=== PATIENT | male | born 1950 | race Caucasian/White ===

== ENCOUNTER 2021-12-07 17:18 | Inpatient (IN) | payer OTHER ==
[~2021-12-07] VITALS: Ht 167.6 cm; Wt 84.0 kg
[~2021-12-07 17:18] MED LIST: ACET325 PO; AMAN100 PO; AMLO10 PO; ASPI81CH PO; ATOR20 PO; CHOL10002 PO; DUTA.5; ERGO400 PO; ERGO50000 PO; EZET10; FISH OIL 1,0001 EAC1 PO; GEMF600; HYDACE5 PO; HYDACE7.5L; INSUASPI; INSUASPI SC; INSULANI; INSULANPEN SC; LANS15EC; LEVEMIR100 UNIT/1; LIDO700A20 TOP; LISI20 PO; LOSA50 PO; META400 PO; METF500 PO; METO50ER PO; NAPR550 PO; NITR.4SL SL; NORT75 PO; Novolog Fl100 UNIT/1 SC; OMACOR; TAMS.4ER PO; TRAM50 PO; [UNRECOGNIZED DRUG - REMARK]; [UNRECOGNIZED DRUG - REMARK]
[2021-12-07 17:47] LABS: BASOPHILS ABSOLUTE AUTO 0.06 K/mm3 (0.00-0.23); BASOPHILS PERCENT AUTO 1 % (0-2); EOSINOPHILS ABSOLUTE AUTO 0.36 K/mm3 (0.00-0.68); EOSINOPHILS PERCENT AUTO 4 % (0-6); Hematocrit 51.3 % (37.0-53.0); Hemoglobin 16.7 g/dL (13.5-17.5); IMMATURE GRAN ABSOLUTE AUTO 0.03 K/mm3 (0.00-0.10); IMMATURE GRAN PERCENT AUTO 0 % (0-1); LYMPHOCYTES ABSOLUTE AUTO 0.99 K/mm3 (0.84-5.20); LYMPHOCYTES PERCENT AUTO 11 % (21-46); MONOCYTES ABSOLUTE AUTO 0.53 K/mm3 (0.16-1.47); MONOCYTES PERCENT AUTO 6 % (4-13); Mean Corpuscular HGB 30.5 pg (26.0-34.0); Mean Corpuscular HGB Conc 32.6 g/dL (31.5-36.5); Mean Corpuscular Volume 94 fL (80-100); Mean Platelet Volume 11.1 fL (9.1-12.4); NEUTROPHILS ABSOLUTE AUTO 6.71 K/mm3 (1.96-9.15); NEUTROPHILS PERCENT AUTO 77 % (41-73); Platelet Count 223 K/mm3 (150-400); RDW Coefficient Variation 14.3 % (11.7-14.2); RDW Standard Deviation 49.4 fL (35.1-46.3); Red Blood Cell Count 5.48 M/mm3 (4.30-5.90); White Blood Cell Count 8.68 K/mm3 (4.00-11.30)
[2021-12-07] MEDS ORDERED: JARDIANCE25 MG PO (17:49)
[2021-12-07] MEDS ORDERED: CHLO25B PO (17:50)
[2021-12-07 17:58] LABS: Albumin, Blood 3.5 g/dL (3.4-5.0); Albumin/Globulin Ratio 1.2 (0.8-1.8); Bilirubin, Total 0.6 mg/dL (0.1-1.0); Bun/Creatinine Ratio 20.7 (12.0-20.0); Calcium, Blood 9.1 mg/dL (8.5-10.1); Creatinine, Blood 0.92 mg/dL (0.60-1.20); Globulin, Blood 2.9 g/dL (2.2-4.0); Potassium, Blood 4.3 mmol/L (3.5-5.5); Total Protein, Blood 6.4 g/dL (6.4-8.2)
[2021-12-07 23:21] LABS: Magnesium, Blood 1.6 mg/dL (1.6-2.4); Thyroid Stimulating Hormone 1.85 uIU/mL (0.360-4.800)
[2021-12-08 05:03] LABS: BASOPHILS ABSOLUTE AUTO 0.07 K/mm3 (0.00-0.23); BASOPHILS PERCENT AUTO 1 % (0-2); EOSINOPHILS ABSOLUTE AUTO 0.61 K/mm3 (0.00-0.68); EOSINOPHILS PERCENT AUTO 6 % (0-6); Hematocrit 53.7 % (37.0-53.0); Hemoglobin 17.7 g/dL (13.5-17.5); IMMATURE GRAN ABSOLUTE AUTO 0.03 K/mm3 (0.00-0.10); IMMATURE GRAN PERCENT AUTO 0 % (0-1); LYMPHOCYTES PERCENT AUTO 12 % (21-46); MONOCYTES ABSOLUTE AUTO 0.75 K/mm3 (0.16-1.47); MONOCYTES PERCENT AUTO 7 % (4-13); Mean Corpuscular HGB 30.5 pg (26.0-34.0); Mean Corpuscular Volume 92 fL (80-100); Mean Platelet Volume 11.8 fL (9.1-12.4); NEUTROPHILS PERCENT AUTO 75 % (41-73); Platelet Count 240 K/mm3 (150-400); RDW Coefficient Variation 14.4 % (11.7-14.2); RDW Standard Deviation 49.2 fL (35.1-46.3); Red Blood Cell Count 5.81 M/mm3 (4.30-5.90); White Blood Cell Count 11.06 K/mm3 (4.00-11.30)
--- NOTE | 2021-12-08 05:11 | NUR ---
PT ADMITTED AT 0130 FROM ED- [facility] AND WENT BY EMS FOR MILD CHEST PAIN/SOB X 1 WEEK- PT TACHY ON TELE- PT UP AB ROMI TO BR TO URINATE OFTEN T/O SHIFT- PT EDUCATED OF STRICT I&O
[2021-12-08 05:33] LABS: Albumin, Blood 3.4 g/dL (3.4-5.0); Albumin/Globulin Ratio 1.1 (0.8-1.8); Bilirubin, Total 1.2 mg/dL (0.1-1.0); Calcium, Blood 8.9 mg/dL (8.5-10.1); Creatinine, Blood 0.79 mg/dL (0.60-1.20); Globulin, Blood 3.2 g/dL (2.2-4.0); Potassium, Blood 3.5 mmol/L (3.5-5.5); Total Protein, Blood 6.6 g/dL (6.4-8.2)
--- NOTE | 2021-12-08 06:30 | NUR ---
CALL FROM TELE - PT HAD 4 SECOND RUN OF VTACH- PT LAYING IN BED WITH EYES CLOSED, NO S/S DISTRESS/PAIN
--- NOTE | 2021-12-08 17:58 | NUR ---
PT PLEASANT TODAY. HAS BEEN WATCHING TV MOST OF DAY. DENIES CHEST PAIN, ADMITS TO SOB WITH EXERTION. WE CONTINUE TO DIURESE TODAY. IN TO VISIT MUCH OF DAY. DR LACY STATES IS A POSSIBE ANGIOGRAM TOMORROW, HAS NOT SPOKEN TO CARDIO YET. WILL DO SO TOMORROW IN AM. DID MAKE PT NPO FOR POSSIBLE ANGIO TOMORROW. PT UNDERSTANDING. PT MAINTAINING NSR PER TELE. NO OTHER CONCERNS NOTED TODAY. BED IN LOW POSITION, CALL LITE IN REACH, CALLS APROP
--- NOTE | 2021-12-09 04:18 | NUR ---
SUMMARY: PATIENT AOX4. VSS. AMBULATES IN ROOM INDEPENDENTLY. NO ACUTE EVENTS OVERNIGHT. PATIENT HAS INCREASED SOB WITH EXERTION. NO EPISODES OF CHEST PAIN OVER NIGHT. PATIENT HAS BEEN NPO SINCE MIDNIGHT. AWAITING CARDIO CONSULTATION THIS MORNING AND POSSIBLE ANGIOGRAM.
[2021-12-09 05:41] LABS: Calcium, Blood 9.4 mg/dL (8.5-10.1); Creatinine, Blood 0.94 mg/dL (0.60-1.20); Magnesium, Blood 2.1 mg/dL (1.6-2.4); Potassium, Blood 3.5 mmol/L (3.5-5.5)
--- NOTE | 2021-12-09 07:57 | NUR ---
CALLED DR LACY. OKAY EAT THIS DAY. URBAN RENEWAL MANAGER NOT IN TO SEE PT THIS AM. HOLD LOVENOX.
--- NOTE | 2021-12-09 10:22 | NUR ---
SPOKE TO DR LACY RE INCREASED H/R THIS AMN. HE INCREASED METOPROLOL
--- NOTE | 2021-12-09 10:57 | NUR ---
PT REPORTS LAST BM YEST MEDIUM.
--- NOTE | 2021-12-09 17:28 | NUR ---
PT PENDING TO GO TO ANGIOGRAM TOMORROW AM. PT TO BE NPO MIDNITE EXCEPT MEDS. NEW MEDS STARTED TODAY BY DR IVY. PT CARLA WELL, ALTHOUGH IS SOME LOW. CONTINUES TO BE ASYMPTOMATIC. AND I BOTH DISCUSSED IF LIGHTHEADED, DIZZY, FAINTNESS SYMPTOMS. SAFETY PRECAUTIONS DISCUSSED. PT VERBALIZES UNDERSTANDING. DENIES S/S AT THIS TIME. PT STATES AWARE OF ANGIO TOMORROW. NO NEW CONCERNS NOTED. BED IN LOW POSITION, CALL LITE IN REACH, CALLS APROP
--- NOTE | 2021-12-09 17:39 | NUR ---
PER TELE RUNNING 105-115 H/RATE. NSR WITH OCC PVC'S LAST VS 98/, PT STATES ASYMPOTOMATIC
--- NOTE | 2021-12-10 04:30 | NUR ---
SUMMARY: PATIENT DID WELL OVERNIGHT. VSS. AOX4. AMBULATED IN ROOM INDEPENDENTLY. PROVIDED PATIENT A SNACK BEFORE BED HE WAS KEPT NPO SINCE MIDNIGHT. NO COMPLAINTS OF CP AT THIS TIME. ANTICIPATING AGIOGRAM THIS AM.
[2021-12-10 05:45] LABS: Anion Gap 7 mmol/L (6-16); Blood Urea Nitrogen 38 mg/dL (8-24); Bun/Creatinine Ratio 34.2 (12.0-20.0); CO2, Blood 28 mmol/L (21-32); Calcium, Blood 8.6 mg/dL (8.5-10.1); Chloride, Blood 105 mmol/L (98-108); Cholesterol 89 mg/dL (50-200); Creatinine, Blood 1.11 mg/dL (0.60-1.20); Glomerular Filtration Rate 71 (60-); Glucose, Blood 125 mg/dL (70-99); HDL Cholesterol 30 mg/dL (>39); LDL/HDL RATIO 1.4; Low Density Lipoprotein Chol 42 mg/dL (0-110); Magnesium, Blood 2.1 mg/dL (1.6-2.4); Potassium, Blood 3.5 mmol/L (3.5-5.5); Sodium, Blood 140 mmol/L (136-145); Triglycerides 84 mg/dL (30-160); Very Low Density Lipoprot Chol 16 mg/dL (6-32)
--- NOTE | 2021-12-10 08:00 | NUR ---
PATIENT TO FIELD MARKETING DIRECTOR. WILL CALL REPORT TO ONCOMING NURSE WHEN BED AVAILABLE.
--- NOTE | 2021-12-10 08:30 | NUR ---
PCU TRANSFER SPOKE WITH CICI VIDALES ON THE PHONE IN PCU TO GIVE REPORT OF PT TRANSFER. PT WAS TAKEN FOR AN ANIGOGRAM THIS AM AND WILL RETURN TO PCU AFTER ITS COMPLETION.
--- NOTE | 2021-12-10 10:00 | NUR ---
SPOKE WITH DR. ALEMAN REGARDING LASIX AND ALDACTONE ORDERS. DUE TO LOW BP HOLD BOTH PER DR. ALEMAN.
--- NOTE | 2021-12-10 15:11 | NUR ---
SHIFT SUMMARY; ASSUMED [facility]ARE FROM [facility]. ANGIO WITH RIGHT RADIAL SITE. TR BAND IN PLACE WITH ARM BOARD. A/A/OX4, INDEPENDANT IN ROOM, SPOUSE AT BEDSIDE. UPDATED ON PENDING TRANSFER. DENIES CP OR SOB. RIGHT PULSE PALPABLE, MOVES ALL FINGERS WITHOUT DIFFICULTY, CAP REFILL <3. TR BAND RECOVERED PER ORDERS, TEGADERM IN PLACE, NO BRUISING OR SWELLING AT SITE, ARM BOARD IN PLACE AT TIME OF TRANSFER. REPORT TO [facility] FOR TRANSFER.
== END 2021-12-10 15:20 | disposition short-term general hospital (02) | DRG 286 ==
LOC: ER 17:18 → MEDS 23:31 → PCU 12-10 08:56
PROVIDERS: Family Medicine; Internal Medicine; Student in an Organized Health Care Education/Training Program; ADMIT Internal Medicine
PROC: 4A023N7 Measurement of Cardiac Sampling and Pressure, Left Heart, Percutaneous Approach (ICD-10-PCS; principal; 2021-12-10)
PROC: B2111ZZ Fluoroscopy of Multiple Coronary Arteries using Low Osmolar Contrast (ICD-10-PCS; 2021-12-10)
DX: I11.0 Hypertensive heart disease with heart failure (principal); I50.21 Acute systolic (congestive) heart failure; I24.8 Other forms of acute ischemic heart disease; E11.9 Type 2 diabetes mellitus without complications; I25.10 Atherosclerotic heart disease of native coronary artery without angina pectoris; I42.0 Dilated cardiomyopathy; I25.5 Ischemic cardiomyopathy; E78.1 Pure hyperglyceridemia; E78.00 Pure hypercholesterolemia, unspecified; I49.3 Ventricular premature depolarization; I45.81 Long QT syndrome; I45.10 Unspecified right bundle-branch block; F17.220 Nicotine dependence, chewing tobacco, uncomplicated; G47.33 Obstructive sleep apnea (adult) (pediatric); N40.0 Benign prostatic hyperplasia without lower urinary tract symptoms; F32.A Depression, unspecified; Z87.11 Personal history of peptic ulcer disease; Z90.49 Acquired absence of other specified parts of digestive tract; Z98.890 Other specified postprocedural states; Z79.4 Long term (current) use of insulin; Z79.899 Other long term (current) drug therapy
CPT/HCPCS: 36415; 71046; 76937; 80048; 80053; 80061; 82947; 83036; 83735; 83880; 84443; 84484; 85025; 93005; 93010; 93306; 93458; 96372; 96374; 96375; 96376; 99152; 99153; 99285-25; A9270; C1769; C1887; C1894; G0378; J0360; J1644; J1650; J1815; J1940; J2250; J3010; J3475; J7030; J7040; Q9967

== ENCOUNTER 2022-04-08 12:57 | Observation (INO) | payer OTHER ==
[~2022-04-08] VITALS: Ht 167.6 cm; Wt 84.1 kg
[~2022-04-08 12:57] MED LIST changes: +CHLO25B PO; +JARDIANCE25 MG PO
[2022-04-08 13:21] LABS: BASOPHILS ABSOLUTE AUTO 0.06 K/mm3 (0.00-0.23); BASOPHILS PERCENT AUTO 1 % (0-2); EOSINOPHILS ABSOLUTE AUTO 0.28 K/mm3 (0.00-0.68); EOSINOPHILS PERCENT AUTO 2 % (0-6); Hematocrit 49.6 % (37.0-53.0); Hemoglobin 16.2 g/dL (13.5-17.5); IMMATURE GRAN ABSOLUTE AUTO 0.06 K/mm3 (0.00-0.10); IMMATURE GRAN PERCENT AUTO 1 % (0-1); LYMPHOCYTES ABSOLUTE AUTO 1.01 K/mm3 (0.84-5.20); LYMPHOCYTES PERCENT AUTO 9 % (21-46); MONOCYTES ABSOLUTE AUTO 0.62 K/mm3 (0.16-1.47); MONOCYTES PERCENT AUTO 5 % (4-13); Mean Corpuscular HGB 28.9 pg (26.0-34.0); Mean Corpuscular HGB Conc 32.7 g/dL (31.5-36.5); Mean Corpuscular Volume 89 fL (80-100); Mean Platelet Volume 10.9 fL (9.1-12.4); NEUTROPHILS ABSOLUTE AUTO 9.92 K/mm3 (1.96-9.15); NEUTROPHILS PERCENT AUTO 83 % (41-73); Platelet Count 249 K/mm3 (150-400); RDW Coefficient Variation 15.5 % (11.7-14.2); RDW Standard Deviation 49.5 fL (35.1-46.3); White Blood Cell Count 11.95 K/mm3 (4.00-11.30)
[2022-04-08 13:39] LABS: Albumin, Blood 3.5 g/dL (3.4-5.0); Albumin/Globulin Ratio 1.1 (0.8-1.8); Bilirubin, Total 0.6 mg/dL (0.1-1.0); Bun/Creatinine Ratio 31.2 (12.0-20.0); Creatinine, Blood 0.93 mg/dL (0.60-1.20); Globulin, Blood 3.3 g/dL (2.2-4.0); Potassium, Blood 4.6 mmol/L (3.5-5.5); Total Protein, Blood 6.8 g/dL (6.4-8.2)
[2022-04-08] MEDS ORDERED: B-12500 MC2 PO (17:29)
[2022-04-08] MEDS ORDERED: MELATONIN5 M1 PO (17:30)
[2022-04-08] MEDS ORDERED: CLOP75 PO (17:32)
[2022-04-08] MEDS ORDERED: NAPR500 PO (17:33)
[2022-04-08] MEDS ORDERED: Aspir 8181 MG PO (17:33)
[2022-04-08] MEDS ORDERED: ENTRESTO 24 MG1 EACH PO (17:34)
[2022-04-08] MEDS ORDERED: CYCL10 PO (17:36)
[2022-04-08] MEDS ORDERED: METO25ER PO (17:39)
[2022-04-08] MEDS ORDERED: JARDIANCE25 MG PO (17:40)
--- NOTE | 2022-04-08 18:03 | NUR ---
ADMIT PT ADMITTED TO ROOM 331. ORIENTED TO ROOM. CALL LIGHT IN REACH. SNACKS AND WATER PROVIDED. PT ASKING FOR DINNER. INFORMED IT WILL BE HERE SHORTLY. PT EDUCATED ON THE USE OF THE CALL LIGHT WHEN HE NEEDS TO USE THE RESTROOM. VERBALIZES UNDERSTANDING. DENIES PAIN AT THIS TIME. DENIES OTHER NEEDS AT THIS TIME. VS REVIEWED. CALL LIHGT IN REACH.
[2022-04-08 19:35] LABS: Hematocrit 49.1 % (37.0-53.0); Hemoglobin 15.9 g/dL (13.5-17.5)
[2022-04-09 05:38] LABS: Hematocrit 48.2 % (37.0-53.0); Hemoglobin 15.5 g/dL (13.5-17.5); Mean Corpuscular HGB 28.9 pg (26.0-34.0); Mean Corpuscular HGB Conc 32.2 g/dL (31.5-36.5); Mean Corpuscular Volume 90 fL (80-100); Platelet Count 248 K/mm3 (150-400); RDW Coefficient Variation 15.7 % (11.7-14.2); Red Blood Cell Count 5.37 M/mm3 (4.30-5.90); White Blood Cell Count 11.84 K/mm3 (4.00-11.30)
[2022-04-09 06:06] LABS: Bun/Creatinine Ratio 27.4 (12.0-20.0); Calcium, Blood 8.2 mg/dL (8.5-10.1); Creatinine, Blood 0.91 mg/dL (0.60-1.20)
--- NOTE | 2022-04-09 06:37 | NUR ---
FLYING INSTRUCTOR SUMMARY: A&Ox4. PLEASANT AND COOPERATIVE WITH CARE. CALLS APPROPRIATELY AND IS ABLE TO COMMUNICATE NEEDS EFFECTIVELY. NO C / O PAIN T/O SHIFT. CHIPS AND SIPS UNTIL NOON AND WILL BE NPO AFTER NOON TODAY IN ANTICIPATION OF EGD THIS AFTERNOON. DAUGHTER IN TO VISIT FOR AWHILE LAST NIGHT. NO ACUTE CONCERNS T/O THE NIGHT. MORNING LABS DRAWN; NO CRITICAL RESULTS REPORTED. WILL REPORT TO ONCOMING RN.
--- NOTE | 2022-04-09 18:24 | NUR ---
SHIFT SUMMARY- NO BLOODY BM'S OR ANY BM'S THIS SHIFT. AAOX4. CALM APPROPRIATE.
--- NOTE | 2022-04-10 05:13 | NUR ---
ROTARY SWAGING MACHINE OPERATOR SUMMARY: A&Ox4. PLEASANT AND COOPERATIVE WITH CARE. CALLS APPROPRIATELY AND IS ABLE TO COMMUNICATE NEEDS EFFECTIVELY. EGD PLANNED FOR 04/10; WAS UNABLE TO BE COMPLETED 04/09 D/T LACK OF SURGICAL STAFF. PT DECLINES HAVING HAD BOWEL MOVEMENT TODAY; BOWEL SOUNDS TYMPANIC. 1L LR ADMINISTERED T/O SHIFT. NO ACUTE CONCERNS T/O THE NIGHT. WILL REPORT TO ONCOMING RN.
[2022-04-10 07:51] LABS: Hematocrit 51.3 % (37.0-53.0); Hemoglobin 16.1 g/dL (13.5-17.5)
--- NOTE | 2022-04-10 11:43 | NUR ---
NOTIFIED ROMI OF HR SUSTAINING IN 120'S. SAID TO GIVE METOROLOL 25MG SCHEDULED FOR 2100 NOW.
--- NOTE | 2022-04-10 18:31 | NUR ---
PT HAD A "MEDIUM, BLACK, FORMED" STOOL THIS AM. PT DENIES SEEING ANY RED/BLOOD. PT GOING TO HAVE EGD TONIGHT. NO PAIN TODAY.
--- NOTE | 2022-04-10 19:17 | NUR ---
04/10/221916 Robin Pierce History, Chart, Medications and Allergies reviewed before start of procedure. MONITOR INTACT WITH CONTINUOUS PULSE OXIMETRY AND INTERMITTENT BP. 3-LEAD EKG REVIEWED WITH PHYSICIAN PRIOR TO START OF PROCEDURE. O2 VIA N/C INTACT THROUGHOUT SEDATION/PROCEDURE. Bite Block Placed
--- NOTE | 2022-04-11 06:17 | NUR ---
MEDICAL INSURANCE CLERK SUMMARY PT A/OX4. ABLE TO MAKE NEEDS KNOWN. NO ACUTE EVENTS. COOPERATIVE WITH CARE. PT AT EDG PROCEDURE AT START OF SHIFT. RETURNED TO ROOM 1999; POST OP VITALS DONE. PT TOLERATING ORAL INTAKE WELL. PT ON TELE; SINUS W/BBB. ROOM AIR; INDEPENDENT IN THE ROOM. VITAL SIGNS STABLE. WILL CONT MONITOR. CALL LIGHT ACCESSIBLE.
--- NOTE | 2022-04-11 08:22 | NUR ---
RN INFORMED MD LLANOS OF CALL FROM TELE REGARDING THE PROLONGED QTC INTERVAL. STATED SHE WOULD REVIEW PT'S MEDS.
[2022-04-11] MEDS ORDERED: OMEP20ER PO (11:56)
--- NOTE | 2022-04-11 12:30 | NUR ---
PATIENT D/C'D TO HOME WITH FAMILY. DC INSTRUCTIONS AND EDUCATION DISCUSSED WITH PATIENT AND COPY PROVIDED. RX MEDICATIONS SENT TO [facility]. PATIENT DENIES ANY FURTHER QUESTIONS OR CONCERNS. ADVISED TO FOLLOW UP WITH PCP IN 1 WEEK.
== END 2022-04-11 12:31 | disposition home or self-care (01) ==
LOC: ER 12:57 → MEDS 12:58
PROVIDERS: Internal Medicine; Internal Medicine Gastroenterology; Student in an Organized Health Care Education/Training Program; ADMIT Internal Medicine
PROC: 0DB68ZX Excision of Stomach, Via Natural or Artificial Opening Endoscopic, Diagnostic (ICD-10-PCS; principal; 2022-04-10 16:00)
DX: K92.1 Melena (principal); K22.2 Esophageal obstruction; K44.9 Diaphragmatic hernia without obstruction or gangrene; K26.9 Duodenal ulcer, unspecified as acute or chronic, without hemorrhage or perforation; T39.315A Adverse effect of propionic acid derivatives, initial encounter; I25.2 Old myocardial infarction; Z79.4 Long term (current) use of insulin; I25.5 Ischemic cardiomyopathy; I25.10 Atherosclerotic heart disease of native coronary artery without angina pectoris; Z95.1 Presence of aortocoronary bypass graft; E78.5 Hyperlipidemia, unspecified; I97.89 Other postprocedural complications and disorders of the circulatory system, not elsewhere classified; E11.9 Type 2 diabetes mellitus without complications; Z79.84 Long term (current) use of oral hypoglycemic drugs; N40.0 Benign prostatic hyperplasia without lower urinary tract symptoms; I42.0 Dilated cardiomyopathy
CPT/HCPCS: 36415; 80048; 80053; 82272; 82947; 85014; 85018; 85025; 85027; 93005; 93010; 96374; 96376; 99285-25; A9270; C9113; G0378; J1815; J2704; J7120

== ENCOUNTER 2022-10-29 15:55 | Inpatient (IN) | payer OTHER ==
[~2022-10-29] VITALS: Ht 167.6 cm; Wt 78.1 kg
[~2022-10-29 15:55] MED LIST changes: +Aspir 8181 MG PO; +B-12500 MC2 PO; +CLOP75 PO; +CYCL10 PO; +ENTRESTO 24 MG1 EACH PO; +MELATONIN5 M1 PO; +METO25ER PO; +NAPR500 PO; +OMEP20ER PO
[2022-10-29 16:29] LABS: BASOPHILS ABSOLUTE AUTO 0.06 K/mm3 (0.00-0.23); BASOPHILS PERCENT AUTO 1 % (0-2); EOSINOPHILS ABSOLUTE AUTO 0.41 K/mm3 (0.00-0.68); EOSINOPHILS PERCENT AUTO 5 % (0-6); Hematocrit 42.4 % (37.0-53.0); Hemoglobin 13.1 g/dL (13.5-17.5); IMMATURE GRAN ABSOLUTE AUTO 0.02 K/mm3 (0.00-0.10); IMMATURE GRAN PERCENT AUTO 0 % (0-1); LYMPHOCYTES ABSOLUTE AUTO 1.16 K/mm3 (0.84-5.20); LYMPHOCYTES PERCENT AUTO 15 % (21-46); MONOCYTES ABSOLUTE AUTO 0.54 K/mm3 (0.16-1.47); MONOCYTES PERCENT AUTO 7 % (4-13); Mean Corpuscular HGB 28.6 pg (26.0-34.0); Mean Corpuscular HGB Conc 30.9 g/dL (31.5-36.5); Mean Corpuscular Volume 93 fL (80-100); Mean Platelet Volume 11.4 fL (9.1-12.4); NEUTROPHILS PERCENT AUTO 72 % (41-73); Platelet Count 259 K/mm3 (150-400); RDW Coefficient Variation 13.9 % (11.7-14.2); RDW Standard Deviation 47.1 fL (35.1-46.3); Red Blood Cell Count 4.58 M/mm3 (4.30-5.90); White Blood Cell Count 7.89 K/mm3 (4.00-11.30)
[2022-10-29 16:52] LABS: C-REACTIVE PROTEIN, EXT RANGE 1.11 mg/dL (0.000-0.300)
[2022-10-29 17:06] LABS: Albumin, Blood 3.3 g/dL (3.4-5.0); Albumin/Globulin Ratio 0.9 (0.8-1.8); Bilirubin, Total 0.2 mg/dL (0.1-1.0); Bun/Creatinine Ratio 25.7 (12.0-20.0); Calcium, Blood 9.1 mg/dL (8.5-10.1); Creatinine, Blood 0.82 mg/dL (0.60-1.20); Globulin, Blood 3.5 g/dL (2.2-4.0); Potassium, Blood 4.4 mmol/L (3.5-5.5); Total Protein, Blood 6.8 g/dL (6.4-8.2)
[2022-10-29] MEDS ORDERED: MECL25 PO (19:53)
[2022-10-30 01:38] VITALS: BP 158/85
--- NOTE | 2022-10-30 04:05 | NUR ---
SHIFT SUMMARY 72 YR M ADMITTED ON 10/29/22 FOR CELLULITIS OF THE LEFT MIDDLE FINGER. FULL CODE. PT ARRIVED ON THIS UNIT @ 0015. HE IS ALERT AND ORIENTED X 4 AND IS PLEASANT AND COOPERATIVE WITH CARE. HE IS INDEPENDANT IN THE ROOM. LEFT MIDDLE FINGER IS SWOLLEN, RED, AND VERY PAINFUL. PAIN MEDS ORDERED FROM RESIDENT PER PT REQUEST. PT IS SETTLED IN THE ROOM AND RESTING COMFORTABLY. IV ABX STARTED.
[2022-10-30 05:21] LABS: BASOPHILS ABSOLUTE AUTO 0.06 K/mm3 (0.00-0.23); BASOPHILS PERCENT AUTO 1 % (0-2); EOSINOPHILS ABSOLUTE AUTO 0.42 K/mm3 (0.00-0.68); EOSINOPHILS PERCENT AUTO 7 % (0-6); Hematocrit 37.1 % (37.0-53.0); Hemoglobin 11.6 g/dL (13.5-17.5); IMMATURE GRAN ABSOLUTE AUTO 0.02 K/mm3 (0.00-0.10); IMMATURE GRAN PERCENT AUTO 0 % (0-1); LYMPHOCYTES ABSOLUTE AUTO 0.94 K/mm3 (0.84-5.20); LYMPHOCYTES PERCENT AUTO 16 % (21-46); MONOCYTES ABSOLUTE AUTO 0.44 K/mm3 (0.16-1.47); MONOCYTES PERCENT AUTO 8 % (4-13); Mean Corpuscular HGB 28.4 pg (26.0-34.0); Mean Corpuscular HGB Conc 31.3 g/dL (31.5-36.5); Mean Corpuscular Volume 91 fL (80-100); Mean Platelet Volume 11.5 fL (9.1-12.4); NEUTROPHILS ABSOLUTE AUTO 3.95 K/mm3 (1.96-9.15); NEUTROPHILS PERCENT AUTO 68 % (41-73); Platelet Count 248 K/mm3 (150-400); RDW Standard Deviation 47.2 fL (35.1-46.3); Red Blood Cell Count 4.08 M/mm3 (4.30-5.90); White Blood Cell Count 5.83 K/mm3 (4.00-11.30)
[2022-10-30 05:33] LABS: Albumin, Blood 2.6 g/dL (3.4-5.0); Albumin/Globulin Ratio 0.8 (0.8-1.8); Bilirubin, Total 0.2 mg/dL (0.1-1.0); Bun/Creatinine Ratio 30.2 (12.0-20.0); Calcium, Blood 8.4 mg/dL (8.5-10.1); Creatinine, Blood 0.73 mg/dL (0.60-1.20); Globulin, Blood 3.2 g/dL (2.2-4.0); Total Protein, Blood 5.8 g/dL (6.4-8.2)
[2022-10-30 07:54] VITALS: BP 147/89
[2022-10-30 14:18] VITALS: BP 138/67
--- NOTE | 2022-10-30 19:34 | NUR ---
SHIFT SUMMARY PT A&OX4 AND PLEASANT. INDEPENDENT IN ROOM. PT C/O PAIN IN FINGER AND WAS MEDICATED PER EMAR. PT REPORTS IMPROVED MOBILITY IN LEFT MIDDLE FINGER AND DECREASED SWELLING TODAY. DR. MAHONEY CONSULTED ON PT TODAY. SURGERY SCHEDULED FOR TOMORROW. PT IS TO BE NPO AT MIDNIGHT. HOLD LOVENOX AND PLAVIX BUT OK TO GIVE METOPROLOL. AT BEDSIDE T/O DAY. BED IN LOWEST POSITION AND CALL LIGHT IN REACH.
[2022-10-30 19:35] VITALS: BP 144/72
[2022-10-31] VITALS (17 sets, daily range): BP systolic 104–166; BP diastolic 51–100
--- NOTE | 2022-10-31 04:36 | NUR ---
SHIFT SUMMARY "KAMERON" IS ALERT AND FULLY ORIENTED AND INDEPENDENT IN ROOM. HE IS PLEASNT AND COOPERATIVE. IV ABX, AND PAIN MEDICATION ADMINISTERED PER EMAR. PT WAS STARTED NPO AT MIDNIGHT AND IS SCHEDULED FOR SURGER ON HIS AFFECTED FINGER TOMORROW. NO ACUTE EVENTS OVERNIGHT. PT IS RESTING IN BED AT LOWEST POSITION WITH CALL LIGHT IN REACH.
--- NOTE | 2022-10-31 05:14 | NUR ---
THIS EQUIPMENT MAINTENANCE SUPERINTENDENT HAS REVIEWED AND AGREES WITH ALL NOTES AND ASSESSMENTS BY SOBEIDA GALLEGOS.
[2022-10-31 05:42] LABS: Hemoglobin 12.7 g/dL (13.5-17.5); Mean Corpuscular HGB 28.5 pg (26.0-34.0); Mean Corpuscular HGB Conc 31.8 g/dL (31.5-36.5); Mean Corpuscular Volume 90 fL (80-100); Mean Platelet Volume 11.6 fL (9.1-12.4); Platelet Count 257 K/mm3 (150-400); RDW Standard Deviation 46.1 fL (35.1-46.3); Red Blood Cell Count 4.46 M/mm3 (4.30-5.90); White Blood Cell Count 6.75 K/mm3 (4.00-11.30)
[2022-10-31 06:15] LABS: Calcium, Blood 8.6 mg/dL (8.5-10.1); Creatinine, Blood 0.72 mg/dL (0.60-1.20); Potassium, Blood 3.7 mmol/L (3.5-5.5)
--- NOTE | 2022-10-31 13:54 | NUR ---
10/31/22 1354 MICHEAL HILL 10ML OF LIDOCAINE 1% WAS ADMINISTERED VIA INJECTION TO OPSITE. PROCEDURE PERFORMED BY DR. PEDRO.
[2022-10-31 16:32] LABS: Vancomycin, Trough 12.3 ug/mL (5.0-10.0)
--- NOTE | 2022-10-31 17:09 | NUR ---
SHIFT SUMMARY PT AOX4, I AND D COMPLETED TODAY. PT'S BLOOD SUGAR LOW THIS AM, MEDICATED PER THE EMAR. PT WAS NPO PRIOR TO THE PROCEDURE. HE IS ABLE TO EAT NOW AND HIS SUGARS HAVE STABLIZED. HE HAS BEEN MEDICATED FOR PAIN PER THE EMAR. HE HAS HAD NO C/O CP/PRESSURE OR SOB. HE IS WALKING TO THE BATHROOM INDEPENDENTLY AND TOLERATING IT WELL. HIS IS AT THE BS. PT STATED HE WOULD'VE LIKED A MENU BEFORE DINNER, PUT IN A REQUEST TO THE KITCHEN AND HAVE NOT HEARD ANYTHING BACK. CALL LIGHT WITHIN REACH, BED IN THE LOWEST POSITION. WILL REPORT TO ONCOMING NURSE.
[2022-11-01 04:01] VITALS: BP 168/96
--- NOTE | 2022-11-01 04:36 | NUR ---
SHIFT SUMMARY A/O PLEASENT BUT IN PAIN, LEFT HAND WRAPPED AND PT HOLDING ELEVATED ABOVE HEAD TO RELEAVE POUNDING. NOTIFIED AND BREAKTHROUGH MED WAS ORDERED. BREAKTHROUGH MED GIVEN AND WAS EFFECTIVE UNTIL ROUTINE MED COULD BE GIVEN, PT CALLS APPROPRIATLY MAKES NEEDS KNOWN. 0400 PT MEDICATED FOR PAIN AGAIN AND STATED HIS GLUCOMETER WARNED OF LOW BS, WHEN I CHECKED PT WAS 65 AND ASYMPTOMATIC, SNACK AND JUICE WAS GIVEN. I WILL CONT TO MONITOR PT.
--- NOTE | 2022-11-01 04:54 | NUR ---
PT MONITOR STATES HE HAS 80 FOR FSBS, PT SAID HE WOULD LET ME KNOW IF IT BEGINS TO DROP AGAIN.
--- NOTE | 2022-11-01 05:40 | NUR ---
BLOOD SUGAR RECHECKED WITH PT MONITOR BLOOD SUGAR AT 98 NOW.
[2022-11-01 07:40] VITALS: BP 132/81
[2022-11-01 08:45] LABS: Hematocrit 42.7 % (37.0-53.0); Hemoglobin 13.6 g/dL (13.5-17.5); Mean Corpuscular HGB 28.5 pg (26.0-34.0); Mean Corpuscular HGB Conc 31.9 g/dL (31.5-36.5); Mean Corpuscular Volume 89 fL (80-100); Mean Platelet Volume 11.2 fL (9.1-12.4); Platelet Count 307 K/mm3 (150-400); RDW Coefficient Variation 13.8 % (11.7-14.2); RDW Standard Deviation 44.9 fL (35.1-46.3); Red Blood Cell Count 4.78 M/mm3 (4.30-5.90); White Blood Cell Count 6.77 K/mm3 (4.00-11.30)
[2022-11-01 09:08] LABS: Calcium, Blood 8.5 mg/dL (8.5-10.1); Creatinine, Blood 0.77 mg/dL (0.60-1.20); Potassium, Blood 4.4 mmol/L (3.5-5.5)
[2022-11-01 14:39] VITALS: BP 135/62
[2022-11-01] MEDS ORDERED: VISBIOME 112.51 EACH PO (16:16)
[2022-11-01] MEDS ORDERED: AMOCLA875 PO (16:18)
[2022-11-01] MEDS ORDERED: Percocet 5-3251 EACH PO (16:19)
--- NOTE | 2022-11-01 17:51 | NUR ---
PT DISCHARGED HOME. DC INSTRUCTIONS AND EDUCATION MATERIAL EXPLAINED TO PT. NO NEW QUESTIONS OR CONCERNS. SUPPLIES FOR DRESSING DAILY DRESSING CHANGE SENT HOME WITH PT. APPOINTMENT WITH DR. PEDRO MADE FOR NEXT WEEK. IV DC'D. PT DRESSED INDPENDENTLY. PERSCRIPTIONS FAXED TO [facility] PER PT REQUEST. HARD PERSCRIPTION FOR PAIN MEDICATION GIVEN TO PT WITH INSTRUCTIONS TO GIVE TO PHARMACY TO FILL. ALL BELONGINGS SENT HOME WITH PT. PT TAKEN BY WHEELCHAIR TO WAITING VEHICLE.
== END 2022-11-01 17:12 | disposition home or self-care (01) | DRG 989 ==
LOC: ER 15:55 → MEDS 10-30 00:43
PROVIDERS: Family Medicine; Internal Medicine; Orthopaedic Surgery; Physician Assistant; ADMIT Internal Medicine
PROC: 0RBX0ZZ Excision of Left Finger Phalangeal Joint, Open Approach (ICD-10-PCS; principal; 2022-10-31 12:30)
DX: L03.012 Cellulitis of left finger (principal); E11.649 Type 2 diabetes mellitus with hypoglycemia without coma; I10 Essential (primary) hypertension; N40.0 Benign prostatic hyperplasia without lower urinary tract symptoms; E78.5 Hyperlipidemia, unspecified; F32.A Depression, unspecified; M19.072 Primary osteoarthritis, left ankle and foot; G47.33 Obstructive sleep apnea (adult) (pediatric); E78.1 Pure hyperglyceridemia; I25.10 Atherosclerotic heart disease of native coronary artery without angina pectoris; Z95.1 Presence of aortocoronary bypass graft; Z79.02 Long term (current) use of antithrombotics/antiplatelets; Z79.4 Long term (current) use of insulin; Z79.899 Other long term (current) drug therapy; Z90.49 Acquired absence of other specified parts of digestive tract; Z98.890 Other specified postprocedural states; Z87.11 Personal history of peptic ulcer disease; Z87.19 Personal history of other diseases of the digestive system; Z87.891 Personal history of nicotine dependence
CPT/HCPCS: 36415; 73201; 80048; 80053; 80202; 82947; 84550; 85025; 85027; 86140; 87070; 87075; 87077; 87186; 87205; 96365-59; 99285-25; A9270; J0295; J1650; J1815; J1956; J2250; J2704; J3010; J3370; J7050; J7120; Q9967

== ENCOUNTER 2023-12-24 12:52 | Day surgery (SDC) | payer OTHER ==
[~2023-12-24] VITALS: Ht 170.2 cm; Wt 89.5 kg
[~2023-12-24 12:52] MED LIST changes: +AMIODARONE HCL400 M2 PO; +AMOCLA875 PO; +ASPIR 8181 M1 PO; +ATOR10 PO; +Atropine Sulfate 0.1 MG/ML 10ML SYR ONE; +BASAGLAR K100 UNIT/1 SC; +DICLOFENAC SOD100 GM; +ELIQUIS5 M2 PO; +FINA5 PO; +GABA300 PO; +GINKGO BILOBA1 EACH PO; +Glycopyrrolate 0.2 MG/ML 1MLVIAL ONE; +INSULIN AS100 UNIT/8 SC; +ISOSORBIDE MONO30 MG PO; +Isosorbide Mono30 MG PO; +Lactated Ringer's 1,000 ML IV ONE; +Lidocaine 2% 5 ML SDV ONE; +Lidocaine HCl/Pf 1% 5 ML VIAL ONE; +MECL25 PO; +Methylene Blue 1% 100 MG/10 ML VIAL ONE; +NORT10 PO; +NOVOLOG FL100 UNIT/3; +Ondansetron HCl 2 MG / ML 2ML Vial ONE; +PANT20 PO; +Percocet 5-3251 EACH PO; +SENNA LAXATIVE8.6 MG PO; +SUPER B-50 COM1 EACH PO; +TESTOSTERONE50 MG; +TESTOSTERONE60 GM SC; +THERA-D2000 UNIT PO; +VISBIOME 112.51 EACH PO; +ePHEDrine Sulfate 50 MG/ML 1ML Injection ONE
[2023-12-24] MEDS ORDERED: propofoL 50 ML IV ONE (13:58)
[2023-12-24] MEDS ORDERED: Calcium Carbon500 MG (14:11)
[2023-12-24] MEDS ORDERED: Lactated Ringer's 1,000 ML IV ONE (15:06)
[2023-12-24 16:23] VITALS: BP 99/65
== END 2023-12-24 16:15 | disposition home or self-care (01) ==
LOC: ORSCSDS 12:52
PROVIDERS: Specialist
PROC: 0DJD8ZZ Inspection of Lower Intestinal Tract, Via Natural or Artificial Opening Endoscopic (ICD-10-PCS; principal; 2023-12-24 14:45)
DX: Z12.11 Encounter for screening for malignant neoplasm of colon (principal); Z86.0100 Personal history of colon polyps, unspecified; K57.30 Diverticulosis of large intestine without perforation or abscess without bleeding; K64.8 Other hemorrhoids; I10 Essential (primary) hypertension; I25.10 Atherosclerotic heart disease of native coronary artery without angina pectoris; J44.9 Chronic obstructive pulmonary disease, unspecified; G47.33 Obstructive sleep apnea (adult) (pediatric); E11.9 Type 2 diabetes mellitus without complications; Z87.891 Personal history of nicotine dependence; I25.2 Old myocardial infarction; F32.A Depression, unspecified; Z79.899 Other long term (current) drug therapy; I50.9 Heart failure, unspecified; E78.5 Hyperlipidemia, unspecified; I48.0 Paroxysmal atrial fibrillation; Z79.4 Long term (current) use of insulin; Z79.02 Long term (current) use of antithrombotics/antiplatelets; Z79.82 Long term (current) use of aspirin
CPT/HCPCS: 82947; 93005; 93010; J0461; J2003; J2405; J2704; J7120; Q9968